=== PATIENT | female | born 1980 | race American Indian/Alaskan Native ===

== ENCOUNTER 2019-04-12 09:57 | Outpatient (CLI) | payer OTHER ==
--- NOTE | 2019-04-16 14:53 | Ultrasound Report ---
COMPLETE LEFT BREAST ULTRASOUND HISTORY: 38-year-old with inverted nipple and nipple discharge for 6 years since breast feeding. COMPARISON: None. FINDINGS: Complete sonographic evaluation of the left breast including imaging of the four quadrants and subareolar areas reveals subareolar duct ectasia with low-level internal echoes within one or mo re of the ducts.. No mass or suspicious shadowing. IMPRESSION: Moderate nonspecific subareolar duct ectasia with no mass identified. Recommend bilateral diagnostic mammogram. BI-RADS Category 0: Needs additional imaging Signer Name: Ishan Gillette MD Signed: 04/16/2019 2:48 PM Workstation Name: [id number]
== END 2019-04-12 09:58 | disposition home or self-care (01) ==
LOC: US 09:57
PROVIDERS: ATTEND Obstetrics & Gynecology
DX: N64.52 Nipple discharge (principal)